=== PATIENT | female | born 1975 | race Caucasian/White ===

== ENCOUNTER 2017-03-21 12:13 | Emergency (ER) | payer OTHER | END 2017-03-21 14:20 | disposition home or self-care (01) | LOC: ER 12:13 | DX: N83.202 Unspecified ovarian cyst, left side (principal); K57.32 Diverticulitis of large intestine without perforation or abscess without bleeding; F17.210 Nicotine dependence, cigarettes, uncomplicated; Z79.899 Other long term (current) drug therapy; Z88.2 Allergy status to sulfonamides; Z88.8 Allergy status to other drugs, medicaments and biological substances | CPT/HCPCS: 36415; 96374; 96375 ==